=== PATIENT | female | born 1940 | race Caucasian/White ===

== ENCOUNTER 2017-09-21 10:17 | Emergency (ER) | payer MEDICARE ==
[2017-09-21] MEDS: HYDROcodone/APAP 5/325MG 1 TAB TABLET PO ×2 (12:11)
== END 2017-09-21 13:05 | disposition home or self-care (01) ==
LOC: ER 10:17
DX: S52.502A Unspecified fracture of the lower end of left radius, initial encounter for closed fracture (principal); Z88.0 Allergy status to penicillin; W19.XXXA Unspecified fall, initial encounter; Y93.89 Activity, other specified; Y92.89 Other specified places as the place of occurrence of the external cause; Y99.8 Other external cause status
CPT/HCPCS: 29125; 73130; 99284-25

== ENCOUNTER → 2020-05-17 | Outpatient (CLI) | payer MEDICARE ==
[2020-05-15 11:00] VITALS: BP 135/80
[~2020-05-17] MED LIST: ACET325T9 PO; HYDR-3164 PO; LORA-627 PO
[2020-05-17 17:08] LABS: BASO % 1 % (0-3); EOS # 0.2 x10^3/uL (0.0-0.7); EOS % 3 % (0-3); HEMATOCRIT 32.4 % (36.0-47.0); HEMOGLOBIN 10.9 g/dL (12.0-15.5); LYMPH # 2.1 x10^3/uL (1.0-4.8); LYMPH % 24 % (24-48); MEAN CORPUSCULAR HEMOGLOBIN 31 pg (25-35); MEAN CORPUSCULAR HGB CONC 34 g/dL (31-37); MEAN CORPUSCULAR VOLUME 93 fL (79-100); MONO # 0.6 x10^3/uL (0.0-1.1); MONO % 7 % (0-9); NEUT # 5.6 x10^3/uL (1.8-7.7); NEUT % 65 % (31-73); PLATELET COUNT 286 x10^3/uL (140-400); RED BLOOD COUNT 3.48 x10^6/uL (3.50-5.40); RED CELL DISTRIBUTION WIDTH 14.4 % (11.5-14.5); WHITE BLOOD COUNT 8.6 x10^3/uL (4.0-11.0)
[2020-05-17 17:22] LABS: ALBUMIN 2.5 g/dL (3.4-5.0); ALBUMIN/GLOBULIN RATIO 0.9 (1.0-1.7); CALCIUM 8.8 mg/dL (8.5-10.1); GFR 53.3; POTASSIUM 3.3 mmol/L (3.5-5.1); TOTAL BILIRUBIN 0.5 mg/dL (0.2-1.0); TOTAL PROTEIN 5.2 g/dL (6.4-8.2)
== END | disposition home or self-care (01) ==
LOC: SPEC 17:00
PROVIDERS: ATTEND Internal Medicine
DX: M62.82 Rhabdomyolysis (principal)
CPT/HCPCS: 36415; 80053; 82550; 85025

== ENCOUNTER 2021-09-27 16:55 | Emergency (ER) | payer MEDICARE ==
[~2021-09-27] VITALS: Ht 160 cm; Wt 68.2 kg
[~2021-09-27 16:55] MED LIST changes: +DILT120C99 PO; +DOXY100T PO
--- NOTE | 2021-09-27 17:28 | RAD ---
EXAM: CHEST 1 VIEW History: Chest pain COMPARISON: 09/21/2021 TECHNIQUE: Single portable radiograph of the chest FINDINGS: Mild cardiomegaly. Mild bibasilar lung atelectasis or infiltrates. The costophrenic sulci are clear and well demarcated. IMPRESSION: Mild bibasilar lung atelectasis or infiltrates. Electronically signed by: Aman Baker MD (09/27/2021 5:26 PM) [id number]
[2021-09-27 17:51] LABS: BASO % 1 % (0-3); EOS # 0.1 x10^3/uL (0.0-0.7); EOS % 2 % (0-3); HEMATOCRIT 30.3 % (36.0-47.0); LYMPH # 1.3 x10^3/uL (1.0-4.8); LYMPH % 23 % (24-48); MEAN CORPUSCULAR HEMOGLOBIN 31 pg (25-35); MEAN CORPUSCULAR HGB CONC 33 g/dL (31-37); MEAN CORPUSCULAR VOLUME 93 fL (79-100); MONO # 0.4 x10^3/uL (0.0-1.1); MONO % 8 % (0-9); NEUT # 3.6 x10^3/uL (1.8-7.7); NEUT % 67 % (31-73); PLATELET COUNT 454 x10^3/uL (140-400); RED BLOOD COUNT 3.24 x10^6/uL (3.50-5.40); RED CELL DISTRIBUTION WIDTH 15.6 % (11.5-14.5); WHITE BLOOD COUNT 5.4 x10^3/uL (4.0-11.0)
[2021-09-27 18:01] LABS: CALCIUM 8.8 mg/dL (8.5-10.1); CREATININE 0.8 mg/dL (0.6-1.0); GFR 68.8; POTASSIUM 3.9 mmol/L (3.5-5.1)
[2021-09-27 18:02] LABS: PROTHROMBIN TIME PATIENT 14.6 SEC (11.7-14.0)
[2021-09-27 18:06] LABS: ALBUMIN 2.1 g/dL (3.4-5.0); ALBUMIN/GLOBULIN RATIO 0.6 (1.0-1.7); TOTAL BILIRUBIN 0.4 mg/dL (0.2-1.0); TOTAL PROTEIN 5.9 g/dL (6.4-8.2)
--- NOTE | 2021-09-27 18:20 | PHYS DOC ---
Past Medical History Past Medical History: A-Fib, Dementia, Renal Disease, Other Additional Past Medical Histor: ALLERGIES, ENCEPHALOPATHY, dysphagia (AWILDA IBARRA MD) Past Surgical History: Appendectomy, Other Additional Past Surgical Histo: Exploratory surgery (AWILDA IBARRA MD) Smoking Status: Never Smoker Alcohol Use: None Drug Use: None (AWILDA IBARRA MD) Adult General Chief Complaint Chief Complaint: CHEST PAIN HPI HPI The patient is an 81-year-old female with a history of dementia and atrial fibrillation who presents for evaluation of midsternal nonexertional nonpleuritic sharp chest discomfort with onset about 1 hour prior to arrival. Discomfort does not radiate. Severity 6/10 at present. No associated fevers, nausea or vomiting, upper respiratory congestion/rhinorrhea, cough, sore throat, shortness of breath, abdominal pain, flank pain, back pain, dysuria, changes in bowel habits, pain or swelling to arms or legs. Patient is alert and pleasantly and appropriately interactive and in no acute di stress with appropriate vital signs upon initial evaluation here in the emergency department. Triage EKG is nonischemic. (AWILDA IBARRA MD) Review of Systems Review of Systems A 12 point review of systems was completed and was negative except where noted in HPI above. (AWILDA IBARRA MD) Current Medications Current Medications Current Medications Medications (Trade) Dose Ordered Sig/Naveen Start Time Stop Time Status Last Admin Dose Admin Info (CONTRAST GIVEN -- Rx MONITORING) 1 each PRN DAILY PRN 09/27/21 19:30 09/29/21 19:29 Iohexol (Omnipaque 350 Mg/ml) 90 ml 1X ONCE 09/27/21 19:30 09/27/21 19:31 DC (BAYRON BLAKE MD) Allergies Allergies Allergies Coded Allergies Type Severity Reaction Last Updated Verified Penicillins Allergy Severe ANAPHALAXSIS 09/21/21 Yes (BAYRON BLAKE MD) Physical Exam Physical Exam Elderly female appearing nontoxic and in no acute distress. Head is normocephalic and atraumatic. Neck is supple and nontender. Oropharynx is moist. Lungs are clear to auscultation at all stations. There is a normal S1 and S2 without rubs or gallops and capillary refill is appropriate, less than 2 seconds globally. Abdomen is soft, nontender and nondistended. No pulsatile mass. Skin is warm and dry without cyanosis, clubbing or edema. Psychiatrically, the patient demonstrates appropriate mood and affect and is alert. Evaluation of the extremities reveals BUEs and BLEs neurovascularly intact distally with strength 5 out of 5, sensation intact light touch in all nerve distributions, radial, DP and PT pulses 2+ and equal bilaterally, capillary refill less than 2 seconds, hands and feet warm and well-perfused. No dependent peripheral edema distally. No calf tenderness or swelling bilater ally. Homans test is negative bilaterally. (AWILDA IBARRA MD) Current Patient Data Vital Signs Vital Signs Date Time Temp Pulse Resp B/P (MAP) Pulse Ox O2 Delivery O2 Flow Rate FiO2 09/27/21 18:40 66 21 113/59 (77) 94 Room Air 09/27/21 16:57 98.4 98.4 (BAYRON BLAKE MD) Lab Values Laboratory Tests Test 09/27/21 17:33 09/27/21 17:35 White Blood Count 5.4 x10^3/uL (4.0-11.0) Red Blood Count 3.24 x10^6/uL (3.50-5.40) L Hemoglobin 10.0 g/dL (12.0-15.5) L Hematocrit 30.3 % (36.0-47.0) L Mean Corpuscular Volume 93 fL (79-100) Mean Corpuscular Hemoglobin 31 pg (25-35) Mean Corpuscular Hemoglobin Concent 33 g/dL (31-37) Red Cell Distribution Width 15.6 % (11.5-14.5) H Platelet Count 454 x10^3/uL (140-400) H Neutrophils (%) (Auto) 67 % (31-73) Lymphocytes (%) (Auto) 23 % (24-48) L Monocytes (%) (Auto) 8 % (0-9) Eosinophils (%) (Auto) 2 % (0-3) Basophils (%) (Auto) 1 % (0-3) Neutrophils # (Auto) 3.6 x10^3/uL (1.8-7.7) Lymphocytes # (Auto) 1.3 x10^3/uL (1.0-4.8) Monocytes # (Auto) 0.4 x10^3/uL (0.0-1.1) Eosinophils # (Auto) 0.1 x10^3/uL (0.0-0.7) Basophils # (Auto) 0.0 x10^3/uL (0.0-0.2) Prothrombin Time 14.6 SEC (11.7-14.0) H Prothrombin Time INR 1.2 (0.8-1.1) H Activated Partial Thromboplast Time 33 SEC (24-38) Sodium Level 143 mmol/L (136-145) Potassium Level 3.9 mmol/L (3.5-5.1) Chloride Level 105 mmol/L (98-107) Carbon Dioxide Level 28 mmol/L (21-32) Anion Gap 10 (6-14) Blood Urea Nitrogen 10 mg/dL (7-20) Creatinine 0.8 mg/dL (0.6-1.0) Estimated GFR (Cockcroft-Gault) 68.8 BUN/Creatinine Ratio 13 (6-20) Glucose Level 91 mg/dL (70-99) Calcium Level 8.8 mg/dL (8.5-10.1) Total Bilirubin 0.4 mg/dL (0.2-1.0) Aspartate Amino Transferase (AST) 13 U/L (15-37) L Alanine Aminotransferase (ALT) 9 U/L (14-59) L Alkaline Phosphatase 92 U/L (46-116) Troponin I High Sensitivity 11 ng/L (4-50) FG-Lup-Y-Type Natriuretic Peptide 404 pg/mL (0-449) Total Protein 5.9 g/dL (6.4-8.2) L Albumin 2.1 g/dL (3.4-5.0) L Albumin/Globulin Ratio 0.6 (1.0-1.7) L SARS-CoV-2 Antigen (Rapid) Negative (NEGATIVE) Laboratory Tests 09/27/21 17:33 Laboratory Tests 09/27/21 17:33 (BAYRON BLAKE MD) EKG EKG Sinus rhythm, rate 63, no acute ST elevation or depression, EP interpretation. Baseline artifact moderately limits interpretation. (AWILDA IBARRA MD) Radiology/Procedures Radiology/Procedures EXAM: CHEST 1 VIEW History: Chest pain COMPARISON: 09/21/2021 TECHNIQUE: Single portable radiograph of the chest FINDINGS: Mild cardiomegaly. Mild bibasilar lung atelectasis or infiltrates. The costophrenic sulci are clear and well demarcated. IMPRESSION: Mild bibasilar lung atelectasis or infiltrates. Electronically signed by: Aman Baker MD (09/27/2021 5:26 PM) [id number] DICTATED and SIGNED BY: AMAN BAKER MD DATE: 09/27/21 [id number] (AWILDA IBARRA MD) Course & Med Decision Making Course & Med Decision Making Patient resting comfortably in no acute distress on serial reassessments. Pending rest of lab work and reevaluation for disposition, transition of care to Dr. Blake. (AWILDA IBARRA MD) Course & Med Decision Making Accepted patient care at shift change. Pending repeat troponin. On examination of possible infiltrates on chest x-ray and patient's recent hospitalization ordered a CT of the chest to further evaluate possible pneumonia and rule out blood clots. Patient is alert and refusing any further interventions. Is requesting water. Patient stating I want to go back to my apartment and " patient is refusing to do a repeat troponin. Is refusing to go to CT. The nurse spoke with patient's DPOA on the phone, Kailee Yanes, who said is okay for patient to return to emergency department without further evaluation. (BAYRON BLAKE MD) Dragon Disclaimer Dragon Disclaimer This electronic medical record was generated, in whole or in part, using a voice recognition dictation system. (AWILDA IBARRA MD) Departure Departure Impression: Primary Impression: Other chest pain Disposition: HOME / SELF CARE / HOMELESS Condition: STABLE Referrals: SHERLEY JOHNSON MD (PCP) AWILDA IBARRA MD Sep 27, 2021 18:19 BAYRON BLAKE MD Sep 27, 2021 19:44
[2021-09-27 18:40] VITALS: BP 113/59
[2021-09-27] MEDS ORDERED: IOHEXOL 350 MG/ML 100 ML VIAL. IV ONE (19:30)
[2021-09-27] MEDS ORDERED: CONTRAST GIVEN. MC PRN (19:30)
--- NOTE | 2021-09-28 06:15 | EKG ---
[facility] [address] [place] [address] Test Date: 2021-09-27 Test Time: 17:06:05 Pat Name: ALEXIS DELGADO Department: Room: Gender: F Food Science Technician: : 1940 Requested By: AWILDA IBARRA Order Number: [id number] Reading MD: Measurements Intervals [place] Rate: 63 P: IN: QRS: -59 QRSD: 80 T: 26 QT: 460 QTc: 474 Interpretive Statements IRREGULAR RHYTHM, NO P-WAVE FOUND ABNORMAL LEFT AXIS DEVIATION LEFT ANTERIOR FASCICULAR BLOCK PROLONGED QT ABNORMAL ECG RI6.02 No previous ECG available for comparison
== END 2021-09-27 20:10 | disposition home or self-care (01) ==
LOC: ER 16:55
DX: R07.2 Precordial pain (principal); Z20.822 Contact with and (suspected) exposure to COVID-19; F03.90 Unspecified dementia, unspecified severity, without behavioral disturbance, psychotic disturbance, mood disturbance, and anxiety; I48.91 Unspecified atrial fibrillation; Z88.0 Allergy status to penicillin
CPT/HCPCS: 36415; 71045; 80053; 83880; 84484; 85025; 85610; 85730; 87426; 93005; 99285; U0003; U0005